=== PATIENT | female | born 1975 | race Two or more races ===

== ENCOUNTER → 2024-02-14 | Outpatient (CLI) | payer MEDICAID, SELFPAY ==
[2024-02-13 15:55] LABS: Basophils % (Auto) 1 % (0-2.5); Eosinophils # (Auto) 0.1 Thou/mm3 (0.0-0.5); Eosinophils % (Auto) 2 % (0-10); Hematocrit 39.6 % (36.0-46.0); Hemoglobin 13.4 g/dL (12.0-16.0); Immature Granulocytes % (Auto) 0 % (0-0); Immature Granulocytes Auto 0.01 Thou/mm3 (0.00-0.00); Lymphocytes # (Auto) 3.6 Thou/mm3 (1.0-4.8); Lymphocytes % (Auto) 47 % (10-50); Mean Corpuscular HGB Conc 33.8 g/dl (31.0-37.0); Mean Corpuscular Hemoglobin 31.5 pg (25.0-35.0); Mean Corpuscular Volume 93 fL (80-100); Monocytes # (Auto) 0.5 Thou/mm3 (0.0-0.8); Monocytes % (Auto) 7 % (0-12); Neutrophils # (Auto) 3.3 Thou/mm3 (1.8-7.7); Neutrophils % (Auto) 44 % (37-80); Nucleated Red Blood Cell % 0 /100 WBC (0); Platelet Count 388 Thou/mm3 (140-440); RDW Standard Deviation 40.9 fL (36.4-46.3); Red Blood Count 4.26 Miln/mm3 (4.00-5.20); White Blood Count 7.6 Thou/mm3 (3.6-11.0)
[2024-02-13 15:59] LABS: Partial Thromboplastin Time 26.4 Seconds (22.0-36.0); Prothrombin Time 10.8 Seconds (9.0-12.2)
--- NOTE | 2024-02-14 08:30 | XR_ITS ---
Examination: Stereotactic guided vacuum assisted right breast biopsy with clip placement Specimen radiograph Date and time of exam:February 14, 2024 1009 hours INDICATIONS: Mammogram December 31, 2023 BI-RADS 4 suspicious lesion upper outer right breast Timeout performed, documenting correct patient, order, referring physician, patient's site and reason for procedure, allergies to medications Informed consent provided. Time out performed Technique: The lesion right breast was localized with a stereotactic apparatus. Local anesthesia was obtained after prepping the skin at the entrance site and applying sterile drape Maximum sterile barrier technique. 6 core biopsies were then obtained, vacuum assisted, stereotactically guided, at the lesion site. Specimens appear adequate. Stereotactic breast marker was introduced at the lesion site Estimated blood loss 2 cc. Patient tolerated the procedure well and appeared in satisfactory and stable condition at completion of the procedure Pathology report to follow Impression: Successful stereotactic breast biopsy as described above.
== END | disposition home or self-care (01) ==
LOC: CDIM 08:08
PROVIDERS: Radiology Diagnostic Radiology; PCP Physician Assistant; Referring Provider Physician Assistant; Visit Provider Physician Assistant
DX: D24.1 Benign neoplasm of right breast (principal); N60.11 Diffuse cystic mastopathy of right breast; R92.0 Mammographic microcalcification found on diagnostic imaging of breast; Z01.812 Encounter for preprocedural laboratory examination
CPT/HCPCS: 19081; 36415; 85025; 85610; 85730; A4648; A4649

== ENCOUNTER → 2024-03-26 | Outpatient (CLI) | payer MEDICAID, SELFPAY ==
--- NOTE | 2024-03-26 15:30 | XR_ITS ---
Examination: Transvaginal ultrasound of the pelvis, complete Technique: Transvaginal sonographic images pelvis performed using appiah scale imaging Exam date and time: March 26, 2024 1604 hours INDICATIONS: Irregular postmenopausal bleeding beginning several months ago FINDINGS: Uterus 5.9 x 3.2 x 5.4 cm Normal endometrial sign 0.3 cm Right ovary obscured by bowel gas Left ovary 1.6 x 0.8 x 1.3 cm arterial flow IMPRESSION: No uterine mass Normal endometrial stripe If postmenopausal bleeding persists, recommend transvaginal pelvic sonography follow-up.
== END | disposition home or self-care (01) ==
LOC: CDIM 15:22
PROVIDERS: PCP Physician Assistant; Referring Provider Physician Assistant; Visit Provider Physician Assistant
DX: N95.0 Postmenopausal bleeding (principal)
CPT/HCPCS: 76830

== ENCOUNTER → 2024-04-23 | Outpatient (CLI) | payer MEDICAID, SELFPAY ==
--- NOTE | 2024-04-23 16:30 | XR_ITS ---
MRI shoulder, right, without contrast. Date and time: April 23, 2024 at 6:19 PM INDICATIONS: Shoulder pain decreased range of motion joint locking stiffness months Technique: Multiple axial, sagittal and coronal sections of the shoulder have been obtained. Siemens high-resolution 1.5 Sandhya MRI scanner is utilized. Axial fat-suppressed sections, TR 2350, TE 18 T2-weighted coronal fat-saturated images, TR 3500, TE 7100 T1-weighted coronal images, TR 500, TE 15 T2-weighted sagittal fat-saturated images, TR 3500, TE 57 T1-weighted sagittal sections, TR 504, TE 13. Findings: Supraspinatus tendon insertion is 4 mm partial-thickness articular surface tear Infraspinatus tendon insertion is intact. Subscapularis insertion is intact. Subscapularis bursa is not seen. Long head of the biceps is in the bicipital groove. No definite tear of the biceps superior labral anchor is seen. Retraction of the musculotendinous junction of the rotator cuff is not seen . Tendinosis pattern is moderate. Distance between the acromium and humeral head is 4.6 mm Atrophy of the supraspinatus muscle is mild . Atrophy of the infraspinatus muscle is mild. Sagittal sections demonstrate a horizontal acromion. Acromioclavicular joint demonstrates mild osteoarthritis . Osacromiale is not identified. Labral margins intact. Bony glenoid fossa on the sagittal sections does not demonstrate osseous defect. Occult fracture or area of avascular necrosis is not seen. Acromioclavicular joint separation is not visible. Defect in the posterolateral margin of the humeral head is not seen Impression: 4 mm partial-thickness articular surface tear supraspinatous Labral margins intact
== END | disposition home or self-care (01) ==
PROVIDERS: PCP Physician Assistant; Referring Provider Physician Assistant; Visit Provider Physician Assistant
DX: M75.101 Unspecified rotator cuff tear or rupture of right shoulder, not specified as traumatic (principal)
CPT/HCPCS: 73221

== ENCOUNTER 2024-08-01 08:55 | Day surgery (SDC) | payer MEDICAID, SELFPAY ==
--- NOTE | 2024-07-31 10:53 | EKG_ITS ---
[facility] Test Date: 2024-07-31 Pat Name: HEATHER JONES Department: Room: - Gender: Female [employer] Bather: MARINA : 1975 Requested By: Terrell Mckinney Order Number: [id number] Reading MD: Terrell Mckinney Measurements Intervals [place] Rate: 71 P: 28 VA: 168 QRS: 27 QRSD: 86 T: 28 QT: 355 QTc: 387 Interpretive Statements SINUS RHYTHM LOW QRS VOLTAGE IN PRECORDIAL LEADS [QRS DEFLECTION < 1.0 mV IN CHEST LEADS] POSSIBLE ANTERIOR MYOCARDIAL INFARCTION , OF INDETERMINATE AGE [30 ms Q WAVE IN V3/V4, OR R < 0.2 mV IN V4] No previous ECG available for comparison /[id number]/[id number]
[2024-07-31 11:04] VITALS: BMI 32.1
[2024-07-31 12:05] LABS: Basophils % (Auto) 1 % (0-2.5); Eosinophils # (Auto) 0.2 Thou/mm3 (0.0-0.5); Eosinophils % (Auto) 2 % (0-10); Hematocrit 40.8 % (36.0-46.0); Hemoglobin 13.9 g/dL (12.0-16.0); Immature Granulocytes % (Auto) 0 % (0-0); Immature Granulocytes Auto 0.01 Thou/mm3 (0.00-0.00); Lymphocytes # (Auto) 3.2 Thou/mm3 (1.0-4.8); Lymphocytes % (Auto) 45 % (10-50); Mean Corpuscular HGB Conc 34.1 g/dl (31.0-37.0); Mean Corpuscular Hemoglobin 31.6 pg (25.0-35.0); Mean Corpuscular Volume 93 fL (80-100); Monocytes # (Auto) 0.3 Thou/mm3 (0.0-0.8); Monocytes % (Auto) 4 % (0-12); Neutrophils # (Auto) 3.4 Thou/mm3 (1.8-7.7); Neutrophils % (Auto) 48 % (37-80); Nucleated Red Blood Cell % 0 /100 WBC (0); Platelet Count 397 Thou/mm3 (140-440); RDW Standard Deviation 41.7 fL (36.4-46.3); White Blood Count 7.1 Thou/mm3 (3.6-11.0)
[2024-07-31 12:14] LABS: Partial Thromboplastin Time 27.8 Seconds (22.0-36.0); Prothrombin Time 10.7 Seconds (9.0-12.2)
[2024-07-31 12:16] LABS: Alanine Aminotransferase 34 U/L (10-49); Albumin, Serum 4.7 gm/dL (3.5-5.0); Albumin/Globulin Ratio 1.6 (1.2-2.2); Alkaline Phosphatase 124 U/L (46-116); Anion Gap 10 (7-16); Aspartate Amino Transferase 27 U/L (0-34); BUN/Creatinine Ratio 12 Ratio (12-20); Bilirubin,Total 0.3 mg/dL (0.3-1.2); Blood Urea Nitrogen 7 mg/dL (9-23); Carbon Dioxide 27.7 mMol/L (20.0-31.0); Chloride 104 mMol/L (98-107); Creatinine (Component) 0.6 mg/dL (0.6-1.3); Estimated Creatinine Clearance 108.4 mL/min (>60); Glucose 107 mg/dL (74-106); Osmolality,Calculated 281 (275-295); Potassium 4.1 mMol/L (3.4-5.1); Sodium 142 mMol/L (136-145); Total Protein 7.7 gm/dL (5.7-8.2); eGFR > 60 See Note
--- NOTE | 2024-07-31 15:38 | ESHP_ITS ---
RE: HEATHER JONES : 1975 DATE OF ADMISSION: 07/31/2024 The patient came to my office on 07/31/2024 for detailed preop history and physical examination. HISTORY OF PRESENT COMPLAINT: The patient presented to me earlier with history of pain in the right shoulder. This is going on for more than 2 years. Range of motion is severely affected. The patient graded intensity of pain 9-10/10. Quality of life and activities of daily living is affected. The patient is unable to sleep. The patient wants something to be done about it. PAST MEDICAL HISTORY: The patient has history of diabetes mellitus and high blood pressure. PAST SURGICAL HISTORY: Cyst removed from the breast. DRUG HISTORY: The patient is on 1. Atorvastatin. 2. Lisinopril. ALLERGIES: NONE KNOWN. FAMILY HISTORY AND SOCIAL HISTORY: The patient denies. She is smoking, drinking and is working. PHYSICAL EXAMINATION: GENERAL: Rather normal-built lady. VITAL SIGNS: Pulse is 72 per minute. Blood pressure 110/72. NECK: Soft, supple. No masses felt. Trachea is centrally placed. CARDIOVASCULAR SYSTEM: First and second heart sounds normal. No murmur heard. RESPIRATORY SYSTEM: Bilateral vesicular breath sounds. CHEST: Clear. ABDOMEN: Soft. No mass felt. Bowel sounds present. BREASTS: Not indicated in this case. RECTAL: The patient was advised to see the family physician for rectal examination. EXTREMITIES: Right shoulder examination revealed 2+ tenderness at AC joint. Active range of motion is 0-90 degrees of flexion. From 90-120 degrees is severe pain. Abduction is from 0-90 degrees and from 90-120 is quite painful. Internal rotation is severely restricted and painful. 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 Since the patient is symptomatic, therefore, right rotator cuff repair with Kelvin procedure was discussed and advised. Detailed discussion took place with the help of pictures, diagram, and tobacco educator. Risk with anesthesia was explained and that includes, but not limited to reaction to anesthetic agents, cardiac arrest, and rarely, it might be fatal. Risk with operation includes infection and if that happens, the patient may need further surgical procedure. Other risks include delayed healing, wound dehiscence, etc. Some time, the patient may develop frozen shoulder and physical therapy is a very important component for successful outcome of the procedure. No guarantee is given regarding outcome of the procedure and/or pain relief. The patient is fully aware of that. Appropriate lab work is done. Surgery is booked for 08/01/2024. DT: 12:44:11 TT: 15:36:00 Ref: [id number] - TID: [id number]
[2024-08-01] VITALS (8 sets, daily range): BP systolic 117–131; BP diastolic 74–92; PULSE 75–92; RESP 12–20; TEMP 36.2–36.7; O2SAT 95–100; BMI 32.1
--- NOTE | 2024-08-01 11:37 | ESOP_ITS ---
Date of Procedure 08/01/24 Pre Op Diagnosis 1. Right rotator cuff tear 2. Right shoulder impingement syndrome Post Op Diagnosis Same Procedure 1. Excision lateral end of the clavicle 2 excision coracoacromial ligament 3 acromioplasty 4 repair of rotator cuff 5. Manipulation under anesthesia Findings Refer dictation Procedure Description The patient was given general endotracheal anesthesia. Right shoulder block was also given. Once satisfactory anesthesia was achieved patient was put in about 45?? sitting position with sandbag underneath the right shoulder blade. The part was thoroughly prepped and draped. A skin incision was made at the AC joint extending proximally towards the neck for a half inches and distally towards the arm for about couple of inches. Deeper dissection was carried out. Bleeding vessels were electrocoagulated as and when encountered. The soft tissue was reflected. Following that AC joint was exposed and AC joint was exposed. The deltoid muscle was reflected from the anterior and lateral aspect of the acromial process. It showed 2 mm osteophytes on the anterior aspect and 2 mm osteophytes on the lateral aspect of the acromial process Following that a periosteal elevator was placed underneath the lateral end of the clavicle and lateral 3-4 mm was excised. The coracoacromial ligament was removed. 2 mm of acromion process on the anterior and lateral side was excised along with osteophytes present. With the help of curved osteotome the undersurface of the Acromial processes was chiseled out. That made more room between the superior surface of the head of the humerus and undersurface of the acromial process. Following that the rotator cuff was inspected. It revealed an oval tear, however most of the fibers were attached to the greater tuberosity. Wound was irrigated with antibiotic solution every 4-5 minutes. The right shoulder was manipulated at this time. Full range of abduction and forward flexion was achieved. The rotator cuff tear was repaired with 2-0 Vicryl. 2 drill holes were made on the acromial process and deltoid muscle was stitched back to it. Some reinforcement sutures were placed. The subcutaneous tissue was then closed with the help of 2-0 Vicryl and 3-0 Vicryl in layers. The skin was closed with allison. About 18 mL of neuropen was injected at the skin incision site. After cleaning the wound with hydrogel proximal solution and sterile dressing was applied. Patient was taken to the recovery room in good condition. Estimated blood loss 20 mL. Prognosis in this case is good. Anesthesia GETA and other Pathology / specimen None Estimated Blood Loss 20 Surgeon Terrell Mcgee MD Surgical Staff Operation Date: 08/01/24 11:15 Case Staff Anesthesiologist: Richard Valle RNsubstation engineer: Dana Cortes
--- NOTE | 2024-08-01 11:50 | SUR.PHASEI ---
1150 patient arrived to recovery resting comfortably in [facility], on oxygen 2L via nasal cannula, breathing unlabored, vital signs stable, denies pain, dressing intact to right shoulder, allison, adaptic soaked in betadine, fluffs, abd, medipore tape, arm sling, no bleeding noted, denies nausea, bilateral radial pulses present when palpated, patient has good circulation to right upper extremity; skin color normal for patient and warm to touch, report received Dr. Valle and Karen BRINK
--- NOTE | 2024-08-01 12:15 | SUR.PHASEI ---
1215 Patient drinking juice, per anesthesia request patient to have juice prior to discharge
--- NOTE | 2024-08-01 13:07 | SUR.PHASEII ---
1307 Patient meets discharge criteria from recovery, awake and alert, breathing unlabored, vital signs stable, denies pain, dressing intact with arm sling; no bleeding noted, denies nausea, patient assisted with dressing into her clothing by her daughter, discharge instructions given to patient and daughter with the assistance of the telephone Terry ID#[id number], daughter signed discharge instructions. Patient given all her belongings prior to discharge, transported via wheelchair and left in a private vehicle.
--- NOTE | 2024-08-05 14:39 | PD.ANESPROG ---
Documentation for date of: 08/05/24 POST ANESTHESIA NOTE: Patient had general LMA anesthesia and R interscalene nerve block for R rotator cuff surgery on 08/01/24. I just called and spoke with her on the phone via electro mechanical technician and she denied any problems from anesthesia and was thankful. Richard Valle MD Anesthesia Progress Note Progress Note Most recent Vital Signs: Last Vital Signs Temp 98.0 F 08/01/24 12:20 Pulse 88 08/01/24 12:50 Resp 20 08/01/24 12:50 BP 125/88 H 08/01/24 12:50 Pulse Ox 95 08/01/24 12:50 O2 Flow Rate 2 08/01/24 12:05
== END 2024-08-01 13:07 | disposition home or self-care (01) ==
PROVIDERS: Anesthesiology; PCP Physician Assistant; Referring Provider Orthopaedic Surgery; Visit Provider Orthopaedic Surgery
PROC: (CPT 23412; principal; 2024-08-01 11:00)
DX: M75.101 Unspecified rotator cuff tear or rupture of right shoulder, not specified as traumatic (principal); M75.41 Impingement syndrome of right shoulder; E11.9 Type 2 diabetes mellitus without complications; I10 Essential (primary) hypertension; Z01.810 Encounter for preprocedural cardiovascular examination
CPT/HCPCS: 23412; 36415; 80053; 85025; 85610; 85730; 93005; A4217; A4565; A4649; J0690; J1100; J1580; J2250; J2704; J2765; J2795; J3010; J3490; J7030; J7120

== ENCOUNTER → 2025-01-09 | Outpatient (CLI) | payer MEDICAID, SELFPAY ==
--- NOTE | 2025-01-09 08:00 | XR_ITS ---
Examination: Screening digital mammography, bilateral Computer aided detection 3-D breast Tomosynthesis, bilateral Date and time of exam: January 09, 2025, 0801 hours, compared to mammograms dating to March 14, 2019 Indication: Screening Technique: Nonmagnified MLO, CC views of the breasts to been obtained, reconstructed from 3-D Tomosynthesis images. R2 computer aided detection program utilized for evaluation of suspicious masses and/or abnormal calcifications. 3-D Tomosynthesis images obtained. Findings: The breasts are heterogeneously dense, which may obscure small masses Stable nodule upper outer right breast Benign calcifications. Breast biopsy marker upper outer right breast No interval suspicious masses Impression: BI-RADS category II: Benign Findings. Recommend 1 year follow-up mammogram.
== END | disposition home or self-care (01) ==
PROVIDERS: PCP Physician Assistant; Referring Provider Physician Assistant; Visit Provider Physician Assistant
DX: Z12.31 Encounter for screening mammogram for malignant neoplasm of breast (principal); R92.323 Mammographic fibroglandular density, bilateral breasts; R92.1 Mammographic calcification found on diagnostic imaging of breast
CPT/HCPCS: 77063; 77067

== ENCOUNTER → 2025-02-26 | Outpatient (CLI) | payer MEDICAID, SELFPAY ==
--- NOTE | 2025-02-26 15:30 | XR_ITS ---
Examination: CT brain head without contrast. 2-D sagittal coronal reconstructions Date and time of exam: February 26, 2025, 1505 hours Amnesia with blurred vision beginning 6 months ago CTDI: vol (mGy): 45 DLP: (mGycm): 902 Technique: Multiple CT axial sections of the brain have been obtained, 5 mm slice thickness. Contrast has not been administered. 2-D sagittal, coronal reconstructions have been obtained Low dose protocols were performed. One or more of the following dose reduction techniques were used; automated exposure control, adjustment of the mA and/or KV according to patient size, use of iterative reconstruction technique. Findings: No significant ventricular enlargement. 10 mm calcification left frontal convexity Intra-axial or extra-axial hemorrhage density is not seen. No mass effect or midline shift Basal cisterns are not remarkable. Fourth ventricle is midline. Cranial vault intact. Impression: Negative for acute hemorrhage, mass effect or midline shift Suspicious for 10 mm left frontal convexity meningioma, recommend brain MRI follow-up pre and postcontrast
== END | disposition home or self-care (01) ==
LOC: CCTX 14:48
PROVIDERS: PCP Physician Assistant; Referring Provider Physician Assistant; Visit Provider Physician Assistant
DX: R41.3 Other amnesia (principal)
CPT/HCPCS: 70450